=== PATIENT | male | born 1965 | race Caucasian/White ===

== ENCOUNTER 2016-09-05 02:52 | Emergency (ER) | payer SELFPAY ==
[~2016-09-05] VITALS: Ht 165.1 cm; Wt 70.0 kg
[2016-09-05 03:30] VITALS: BP 121/84
[2016-09-05] MEDS ORDERED: KETOROLAC 30MG/ML VIAL IV STA (03:39)
[2016-09-05] MEDS ORDERED: FAMOTIDINE 20MG/2ML VIAL IV STA (03:39)
[2016-09-05] MEDS ORDERED: SODIUM CHLORIDE 0.9% 1,000 ML IV ONE (03:39)
[2016-09-05 03:57] LABS: CLARITY URINE TURBID (CLEAR); COLOR URINE YELLOW (YELLOW); GLUCOSE URINE TRACE (NEGATIVE); KETONES URINE NEGATIVE (NEGATIVE); LEUKOCYTE ESTERASE URINE NEGATIVE (NEGATIVE); NITRITE URINE NEGATIVE (NEGATIVE); OCCULT BLOOD URINE NEGATIVE (NEGATIVE); PH URINE 7.5 (4.5-8.0); PROTEIN URINE NEGATIVE (NEGATIVE); SPECIFIC GRAVITY URINE 1.028 (1.005-1.030)
[2016-09-05 03:59] LABS: HEMATOCRIT. 41.8 % (42.0-52.0); HEMOGLOBIN. 14.4 g/dL (14.0-18.0); MEAN CORPUSCULAR HEMOGLOBIN 31.6 pg (28.0-32.0); MEAN CORPUSCULAR VOLUME 91.5 fL (80.0-94.0); MEAN PLATELET VOLUME 7.6 fl (7.4-10.4); PLATELET 235 x1000/uL (130-400); RED BLOOD CELL COUNT 4.57 mill/uL (4.7-6.1); RED CELL DISTRIBUTION WIDTH 13.6 % (11.6-14.6)
[2016-09-05 04:02] LABS: PROTHROMBIN TIME 10.5 sec
[2016-09-05 04:14] LABS: CARBON DIOXIDE 28 mEq/L (21-32); CHLORIDE 102 mEq/L (98-107)
[2016-09-05 07:47] LABS: PLATELET ESTIMATE NORMAL
== END 2016-09-05 08:44 | disposition left against medical advice (07) ==
LOC: ER 02:52
DX: R10.10 Upper abdominal pain, unspecified (principal); K21.9 Gastro-esophageal reflux disease without esophagitis
CPT/HCPCS: 36415; 74176; 80053; 81001; 83690; 85025; 85610; 96361; 96374; 96375; 99285; J1885; J3490; J7030; Z7610

== ENCOUNTER 2020-09-30 18:36 | Inpatient (IN) | payer OTHER ==
[~2020-09-30] VITALS: Ht 165.1 cm; Wt 79.4 kg
[2020-09-30 21:29] LABS: BASOPHILS % 0.9 % (0.0-2.0); HEMATOCRIT. 46.6 % (42.0-52.0); HEMOGLOBIN. 15.6 g/dL (14.0-18.0); LYMPHOCYTES % 43.2 % (20.0-50.0); MEAN CORPUSCULAR HEMOGLOBIN 30.5 pg (28.0-32.0); MEAN CORPUSCULAR VOLUME 90.8 fL (80.0-94.0); MEAN PLATELET VOLUME 7.4 fl (7.4-10.4); MONOCYTES % 5.6 % (2.0-8.0); NEUTROPHILS % 43.3 % (40.0-76.0); PLATELET 292 x1000/uL (130-400); RED BLOOD CELL COUNT 5.13 mill/uL (4.7-6.1); RED CELL DISTRIBUTION WIDTH 12.9 % (11.6-14.6)
[2020-09-30 21:31] LABS: CHLORIDE 108 mEq/L (98-107)
[2020-09-30 21:37] LABS: CLARITY URINE CLEAR (CLEAR); COLOR URINE YELLOW (YELLOW); KETONES URINE NEGATIVE (NEGATIVE); LEUKOCYTE ESTERASE URINE NEGATIVE (NEGATIVE); NITRITE URINE NEGATIVE (NEGATIVE); OCCULT BLOOD URINE NEGATIVE (NEGATIVE); PROTEIN URINE NEGATIVE (NEGATIVE); SPECIFIC GRAVITY URINE 1.012 (1.005-1.030); UROBILINOGEN URINE 0.2 E.U./dL (0.2-1.0)
[2020-09-30 21:48] LABS: *BARBITURATES SCREEN URINE NEGATIVE (NEGATIVE)
[2020-09-30 21:49] LABS: *AMPHETAMINES SCREEN URINE NEGATIVE (NEGATIVE); *BENZODIAZEPINES SCREEN URINE NEGATIVE (NEGATIVE); *COCAINE SCREEN URINE NEGATIVE (NEGATIVE); METHADONE URINE SCREEN NEGATIVE (NEGATIVE); OPIATES URINE SCREEN NEGATIVE (NEGATIVE)
[2020-09-30 21:50] LABS: CANNABINOID URINE SCREEN NEGATIVE (NEGATIVE); PHENCYCLIDINE URINE SCREEN NEGATIVE (NEGATIVE)
[2020-09-30] MEDS ORDERED: ASPIRIN 81MG TABLET PO ONE (22:00)
[2020-09-30] MEDS ORDERED: SODIUM CHLORIDE 0.9% 1,000 ML IV ONE (22:30)
[2020-10-01] VITALS (7 sets, daily range): BP systolic 109–133; BP diastolic 62–93
[2020-10-01] MEDS ORDERED: GUAIFENESIN 200MG/10ML SUGAR FREE UDC PO PRN (02:15)
[2020-10-01] MEDS ORDERED: ACETAMINOPHEN 325MG TABLET PO PRN ×2 (02:15)
[2020-10-01] MEDS ORDERED: MAGNESIUM/ALUMINUM HYDROXIDE/SIMETHICONE 30ML UDC PO PRN (02:15)
[2020-10-01] MEDS ORDERED: DIPHENHYDRAMINE 50MG/ML VIAL IV PRN (02:15)
[2020-10-01] MEDS ORDERED: ONDANSETRON HCL 4MG/2ML INJ IV PRN (02:15)
[2020-10-01] MEDS ORDERED: ZOLPIDEM TARTRATE 5MG TABLET PO PRN (02:15)
[2020-10-01] MEDS: SODIUM CHLORIDE 0.9% 1,000 ML IV SCH ×2 (03:06→13:00)
[2020-10-01] MEDS: SODIUM CHLORIDE 0.9% INJ 3ML FLUSH IVF SCH ×2 (06:08→14:11)
[2020-10-01] MEDS ORDERED: ATORVASTATIN CALCIUM 40MG TABLET PO SCH (21:00)
[2020-10-02] VITALS: BP 116/74
[2020-10-02] MEDS: SODIUM CHLORIDE 0.9% 1,000 ML IV SCH ×2 (01:02→08:03)
[2020-10-02] MEDS: SODIUM CHLORIDE 0.9% INJ 3ML FLUSH IVF SCH ×2 (01:03→06:59)
[2020-10-02 04:00] VITALS: BP 107/70
[2020-10-02 08:00] VITALS: BP 109/75
[2020-10-02 12:00] VITALS: BP 110/70
[2020-10-02 16:00] VITALS: BP 122/77
[2020-10-02 16:09] VITALS: BP 110/74
== END 2020-10-02 16:50 | disposition home or self-care (01) | DRG 310 ==
LOC: EDBD 18:36 → ER 18:36 → 5EST 22:27 → EDBEDREQ 22:33 → EDBEDREQTM 22:33 → EDBEDREQSVC 22:33 → ENRESERV 23:56 → ER 10-01 00:32
PROVIDERS: ADMIT Internal Medicine; ATTEND Internal Medicine
DX: I44.1 Atrioventricular block, second degree (principal); E78.5 Hyperlipidemia, unspecified; E87.8 Other disorders of electrolyte and fluid balance, not elsewhere classified; R07.89 Other chest pain; Z72.0 Tobacco use; Z90.49 Acquired absence of other specified parts of digestive tract; Z79.899 Other long term (current) drug therapy; Z79.82 Long term (current) use of aspirin; Z71.6 Tobacco abuse counseling; Z83.3 Family history of diabetes mellitus
CPT/HCPCS: 36415; 71045; 80053; 80061; 80305; 81003; 83735; 83880; 84443; 84484; 85025; 85379; 93005; 93306; 93970; 99291; J7030